=== PATIENT | male | born 1980 | race Caucasian/White ===

== ENCOUNTER 2018-10-03 23:18 | Emergency (ER) | payer BC ==
[~2018-10-03] VITALS: Ht 170.2 cm; Wt 74.8 kg
[2018-10-03 23:24] VITALS: BP 120/71
[2018-10-03] MEDS ORDERED: TETRACAINE HCL/PF 0.5% UD 2 ML BOTTLE ONE (23:40)
[2018-10-03] MEDS ORDERED: FLUORESCEIN SODIUM OPHTH 1 EA STRIP ONE (23:40)
[2018-10-04] MEDS ORDERED: FLUORESCEIN SODIUM OPHTH 1 EA STRIP OP ONE
[2018-10-04] MEDS ORDERED: TETRACAINE HCL/PF 0.5% UD 2 ML BOTTLE OP ONE
[2018-10-04] MEDS ORDERED: TDAP [DIPH/PERTUSSIS/TET] 0.5 ML VIAL IM ONE ×2 (00:08)
== END 2018-10-04 00:17 | disposition home or self-care (01) ==
LOC: ER 23:22
DX: S05.02XA Injury of conjunctiva and corneal abrasion without foreign body, left eye, initial encounter (principal); Z60.2 Problems related to living alone; W50.0XXA Accidental hit or strike by another person, initial encounter; Y93.79 Activity, other specified sports and athletics; Y92.89 Other specified places as the place of occurrence of the external cause; Y99.8 Other external cause status
CPT/HCPCS: 90471; 90715; 99283; A4606

== ENCOUNTER 2019-09-10 03:03 | Emergency (ER) | payer BC ==
[~2019-09-10] VITALS: Ht 170.2 cm; Wt 77.1 kg
--- NOTE | 2019-09-10 03:05 | NUR ---
PT CAME INTO THE ED C/O NAUSEA AND VOMITING SINCE 1799. PT AAOX4, VSS, BREATHING EVEN AND UNLABORED ON RA W/ NAD NOTED. PT CONNECTED TO THE MONITOR AND POX
--- NOTE | 2019-09-10 03:20 | NUR ---
PT TAKEN TO CT
--- NOTE | 2019-09-10 03:48 | NUR ---
PT BACK FROM CT
[2019-09-10 04:27] LABS: BASOPHILS % (AUTO) 0.3 % (0.0-2.0); EOSINOPHILS % (AUTO) 1.6 % (0.0-6.0); HEMATOCRIT 48 % (39-51); HEMOGLOBIN 16.5 g/dL (13.5-17.5); LYMPHOCYTES # (AUTO) 1.7 /CMM (0.8-4.8); LYMPHOCYTES % (AUTO) 24.6 % (20.0-44.0); MEAN CORPUSCULAR HGB CONC 34 g/dl (31.0-36.0); MEAN CORPUSCULAR VOLUME 93 fL (80-96); MONOCYTES # (AUTO) 0.5 /CMM (0.1-1.30); MONOCYTES % (AUTO) 7.4 % (2.0-12.0); NEUTROPHILS # (AUTO) 4.6 /CMM (1.8-8.9); NEUTROPHILS % (AUTO) 66.1 % (43.0-81.0); PLATELET COUNT (AUTO) 196 /CMM (150-450); RED BLOOD CELL COUNT(AUTO) 5.15 MIL/uL (4.5-6.0)
[2019-09-10 04:37] LABS: CALCIUM, SERUM 8.8 mg/dL (8.5-10.1)
--- NOTE | 2019-09-10 05:02 | NUR ---
PT TRANSPORTED TO RADIOLOGY FOR CT NECK WITH IV CONTRAST.
[2019-09-10] MEDS ORDERED: CT SWABBABLE VALVE TRANS SET 1 EA INFUS.SET MC ONE (05:04)
[2019-09-10] MEDS ORDERED: IOHEXOL-300 100 ML VIAL IV ONE (05:04)
[2019-09-10] MEDS ORDERED: methylPREDNISolone SOD SUCC 125 MG/2ML VIAL IV ONE (06:00)
[2019-09-10] MEDS ORDERED: methylPREDNISolone SOD SUCC 125 MG/2ML VIAL ONE (06:06)
[2019-09-10 06:11] VITALS: BP 117/84
--- NOTE | 2019-09-10 06:11 | NUR ---
Patient discharged to home in stable condition. Written and verbal after care instructions given. Patient verbalizes understanding of instruction.IV removed. Catheter intact and site benign. Pressure and 4x4 applied to site. No bleeding noted.
== END 2019-09-10 06:11 | disposition home or self-care (01) ==
LOC: ER 03:03
DX: J39.2 Other diseases of pharynx (principal); M54.2 Cervicalgia; Z60.2 Problems related to living alone
CPT/HCPCS: 36415; 70490; 70491; 80048; 85025; 96374; 99284; J2930; Q9967